=== PATIENT | male | born 1960 | race Caucasian/White ===

== ENCOUNTER 2018-05-25 12:43 | Day surgery (SDC) | payer BC ==
[2018-05-23 13:29] VITALS: BMI 30.2
[~2018-05-25 12:43] MED LIST: DEXAMETHASONE SOD PHOSPHATE 10 MG/ML 1 ML VIAL IV ONE; HYDROmorphone 0.5 MG/0.5 ML SYRINGE IVP PRN; LACTATED RINGERS 1,000 ML IV SCH; LIDOCAINE 1% 20 ML VIAL (10MG/ML) FOR IV START INTRADERMA PRN; ONDANSETRON 4 MG/2 ML VIAL IVP ONE; SCOPOLAMINE 1.5MG/72HR PATCH TRANSDERM ONE; ceFAZolin IN SWFI 2 GM/20 ML SYRINGE IVP ONE
[2018-05-25 13:16] LABS: Glucose,Whole Blood 118 mg/dL (75-99)
[2018-05-25] MEDS ORDERED: MIDAZOLAM 2 MG/2 ML VIAL ONE (14:23)
[2018-05-25] MEDS ORDERED: PROPOFOL 10 MG/ML 20 ML VIAL IV ONE (14:23)
[2018-05-25] MEDS ORDERED: ePHEDrine SULFATE/0.9% NACL/PF 50 MG/5 ML SYRINGE IV ONE (14:23)
[2018-05-25] MEDS ORDERED: fentaNYL (PF) 50 MCG/ML 2 ML AMP ONE (14:23)
[2018-05-25] MEDS ORDERED: LIDOCAINE 1% INJ 10MG/ML (20 ML MDV) SQ ONE (14:35)
[2018-05-25] MEDS ORDERED: LACTATED RINGERS 1,000 ML IV ONE (15:23)
--- NOTE | 2018-05-25 16:05 | P.OP ---
Date of Procedure: 05/25/18 Preoperative Diagnosis: Hallux limitus left foot Postoperative Diagnosis: Same Procedure(s) Performed: Webb bunionectomy left foot Anesthesia: GETA (Gen.) Surgeon: Kanu Clark Operative Findings: Arthritisdegenerative joint disease first MPJ left foot Description of Procedure: On the date of surgery the patient was taken to the operating room in good condition placed on the operating table supine position where IV was started and adequate IV anesthetic agents were utilized anesthesia was then further supplemented with approximately 10 mL of 0.25% plain Marcaine given in a Guerin block to the patient's left foot patient's left foot and ankle were then prepped and draped in the usual aseptic manner Over heavy web roll padding an ankle tourniquet was placed above the malleoli of the patient's left foot, the patient's left foot and ankle were then elevated and exsanguinated of blood utilizing an Esmarch bandage and after approximately 1 minutes ankle tourniquet was inflated to approximately 250 mmHg. At this point in time attention was directed to the dorsal aspect of the first metatarsal phalangeal joint where approximately 7 cm dorsolinear incision was made the patient responded to this painful stimuli and so the surgery was stopped and the patient was converted to a general anesthetic. Dissection was then carried deep down to level Periosteal Structures Overlying the First Metatarsal Phalangeal Joint These Were Incised in Line with the Original Skin Incision and Underscored and Retracted from the Underlying Bone The hyperostosis Present on the Dorsal Aspect of the First Metatarsal Phalangeal Joint Was Resected Flush Utilizing an osillating Bone Saw. The Proximal Phalanx Was Then Resected It a 90 Angle to the Shaft and Removed in Total from the Surgical Site. Throughout the Surgical Procedure Copious Amounts of Sterile Saline Solution Was Used To Irrigate Site Graft a Flap Had Been Fashioned Utilizing the Periosteum on the Medial Side of the Base of the Proximal Phalanx and This Was Sutured to the Lateral Side of the First Metatarsal Phalangeal Joint Interposing a Soft Tissue and the 2 Osseous Segments. The Periosteal Structures were Then Coaptated and Maintained Utilizing Combination of 2-0 3-0 Vicryl Simple Interrupted Suture Subcutaneous Tissue Layers Were Coaptated and Maintained Utilizing 4-0 Vicryl Simple Interrupted Suture and the Skin Was Closed Utilizing 4-0 Nylon Simple Interrupted Suture Spks Fluffs Four-Inch Conformer and 4 Inch Coban Was Used To Form a Compression Dressing and the Ankle Tourniquet to the Patient's Left Ankle Was Deflated Adequate Hemostatic Return Was Seen in All Digits the Patient's Left Foot Specifically the Left Hallux.
[2018-05-25 16:28] VITALS: TEMP 96.7
[2018-05-25 16:49] LABS: Glucose,Whole Blood 152 mg/dL (75-99)
[2018-05-25 18:08] VITALS: BP 144/82; PULSE 82; RESP 16
== END 2018-05-25 18:00 | disposition home or self-care (01) ==
LOC: OR 12:43
PROVIDERS: ATTEND Podiatrist Foot & Ankle Surgery
DX: M20.5X2 Other deformities of toe(s) (acquired), left foot (principal); M21.612 Bunion of left foot; K21.9 Gastro-esophageal reflux disease without esophagitis; E11.9 Type 2 diabetes mellitus without complications; Z79.84 Long term (current) use of oral hypoglycemic drugs; Z79.899 Other long term (current) drug therapy; Z79.1 Long term (current) use of non-steroidal anti-inflammatories (NSAID)
CPT/HCPCS: 88304; 88311; 28289; J2250; J1100; J2405; J2001; J3010; J2704; J0690

== ENCOUNTER 2019-01-04 06:50 | Day surgery (SDC) | payer BC ==
[2018-12-30 09:54] VITALS: BMI 31.4
[~2019-01-04 06:50] MED LIST changes: -DEXAMETHASONE SOD PHOSPHATE 10 MG/ML 1 ML VIAL IV ONE; -HYDROmorphone 0.5 MG/0.5 ML SYRINGE IVP PRN; -ONDANSETRON 4 MG/2 ML VIAL IVP ONE; -SCOPOLAMINE 1.5MG/72HR PATCH TRANSDERM ONE; -ceFAZolin IN SWFI 2 GM/20 ML SYRINGE IVP ONE
[2019-01-04 07:19] VITALS: TEMP 97.8
[2019-01-04 07:22] LABS: Glucose,Whole Blood 125 mg/dL (75-99)
--- NOTE | 2019-01-04 07:23 | P.GSHP ---
History of Present Illness H&P Date: 01/04/19 CHIEF COMPLAINT: GERD and colon screen HISTORY OF PRESENT ILLNESS: The patient is a 58-year-old male who presents with gastroesophageal reflux disease and need for colon screen. Upper and lower endoscopy were offered for further evaluation and management. PAST MEDICAL HISTORY: Please see list. PAST SURGICAL HISTORY: Please see list. MEDICATIONS: Please see list. ALLERGIES: Please see list. SOCIAL HISTORY: No illicit drug use FAMILY HISTORY: No reports of Crohn disease or ulcerative colitis. REVIEW OF ORGAN SYSTEMS: CONSTITUTIONAL: No reports of fevers or chills. GI: Denies any blood in stools or constipation. PHYSICAL EXAM: VITAL SIGNS: Stable GENERAL: Well-developed pleasant in no acute distress. HEENT: No scleral icterus. Extraocular movements grossly intact. Moist buccal mucosa. NECK: Supple without lymphadenopathy. CHEST: Unlabored respirations. Equal bilateral excursions. CARDIOVASCULAR: Regular rate and rhythm. Distal 2+ pulses. ABDOMEN: Soft, nondistended. MUSCULOSKELETAL: No clubbing, cyanosis, or edema. ASSESSMENT: 1. Gastroesophageal reflux disease 2. Colon screen. PLAN: 1. Recommend proceeding with an upper and lower endoscopy Past Medical History Past Medical History: Chest Pain / Angina, Diabetes Mellitus, GERD/Reflux, Hypertension Additional Past Medical History / Comment(s): back pain with sciatica, snores- problable sleep apnea from previous testing., blood in stool. History of Any Multi-Drug Resistant Organisms: None Reported Past Surgical History: Orthopedic Surgery Additional Past Surgical History / Comment(s): Fox bunionectomy Past Anesthesia/Blood Transfusion Reactions: No Reported Reaction Past Psychological History: Anxiety Smoking Status: Former smoker Past Alcohol Use History: None Reported Additional Past Alcohol Use History / Comment(s): Quit smoking 10 years ago., smoked 1- 1 1/2 ppd. Past Drug Use History: None Reported - Past Family History Mother Family Medical History: No Reported History Brother(s) Family Medical History: Cancer Medications and Allergies Home Medications Medication Instructions Recorded Confirmed Type Naproxen Sodium [Aleve] 220 mg PO BID PRN 05/23/18 12/30/18 History glipiZIDE XL [Glucotrol Xl] 5 mg PO QAM 05/23/18 01/04/19 History glipiZIDE [Glucotrol] 2.5 mg PO HS 05/23/18 01/04/19 History Calcium Carb/Magnesium Hydrox 1 each PO DIRECTED PRN 12/30/18 01/04/19 History [Rolaids Chewable Tablet] Ibuprofen [Motrin Ib] 1 dose PO DIRECTED PRN 12/30/18 12/30/18 History Metoprolol Succinate [Toprol XL] 25 mg PO DAILY 12/30/18 01/04/19 History traMADol HCL [Ultram] 25 mg PO BID PRN 12/30/18 01/04/19 History Allergies Allergy/AdvReac Type Severity Reaction Status Date / Time No Known Allergies Allergy Verified 01/04/19 07:03 Surgical - Exam Vital Signs Temp Pulse Resp BP Pulse Ox 97.8 F 51 L 16 146/71 95 01/04/19 07:14 01/04/19 07:14 01/04/19 07:14 01/04/19 07:14 01/04/19 07:14 Results - Labs Abnormal Lab Results - Last 24 Hours (Table) 01/04/19 Range/Units 07:17 POC Glucose (mg/dL) 125 H (75-99) mg/dL
[2019-01-04] MEDS ORDERED: LIDOCAINE 1% INJ 10MG/ML (20 ML MDV) ONE (07:27)
[2019-01-04] MEDS ORDERED: PROPOFOL 10 MG/ML 20 ML VIAL IV ONE (07:27)
--- NOTE | 2019-01-04 07:42 | P.PCN ---
Date of Procedure: 01/04/19 Description of Procedure: PREOPERATIVE DIAGNOSIS: Gastroesophageal reflux disease. POSTOPERATIVE DIAGNOSIS: Gastritis. Gastroesophageal reflux disease. Diaphragmatic hiatal hernia Duodenitis OPERATION: Esophagogastroduodenoscopy with biopsies along antrum. SURGEON: Caitlyn Membreno MD ANESTHESIA: MAC. INDICATIONS: The patient is a 58-year-old male who presents with a history of reflux disease. Benefits and risks of the procedure were described. Informed consent was obtained. DESCRIPTION: The patient was brought into the endoscopy suite and laid in the left lateral decubitus position. An Olympus gastroscope was passed along the posterior oropharynx down to the distal esophagus where the squamocolumnar junction was encountered at 40 cm from the incisors. The stomach was entered and no bile reflux was found. Additional findings are listed below. Biopsies with cold forceps were obtained of the antrum. The first through third portion of the duodenum was examined and remarkable for mild duodenitis. Retroflexion of the scope confirmed Hill grade 4 lower esophageal valve. The squamocolumnar junction demonstrated LA grade B erosive esophagitis. The stomach was desufflated. The patient tolerated the procedure well. FINDINGS: Squamocolumnar junction 40 cm from the incisors. Diaphragmatic hiatus at 42 cm. Hiatal hernia, 2 cm Hill grade 4 lower esophageal valve. LA grade B erosive esophagitis. Mild duodenitis. Chronic gastritis with recent bleed RECOMMENDATIONS: Upper endoscopy as needed.
--- NOTE | 2019-01-04 07:55 | P.PCN ---
Date of Procedure: 01/04/19 Description of Procedure: PREOPERATIVE DIAGNOSIS: Family history colon cancer, father Colonoscopy screening, high risk POSTOPERATIVE DIAGNOSIS: Family history colon cancer, father Colonoscopy screening, high risk OPERATION: Colonoscopy to the ileocecal valve and appendiceal orifice. SURGEON: Caitlyn Membreno MD. ANESTHESIA: MAC. INDICATIONS: The patient is a 58-year-old male who presents for colonoscopy screening. He presents for his first colonoscopy. Benefits and risks were described and info rmed consent was obtained. DESCRIPTION OF PROCEDURE: The patient had undergone Suprep. He had been brought into the operating room and laid in the left lateral decubitus position. After adequate intravenous sedation, the rectum was examined with 2% lidocaine jelly. No external hemorrhoids were encountered. The prostate was unremarkable. The rectal tone was within normal limits. No lesions were palpated in the rectal vault. An Olympus colonoscope was advanced until the ileocecal valve and appendiceal orifice were clearly viewed. The prep was excellent with clear visualization of the mucosal folds. The scope was removed with visualization of each mucosal fold. No scattered diverticulosis was encountered. No colonic polyps were found. No evidence of focal colitis was found. Retroflexion of the scope demonstrated grade no internal hemorrhoids. The colon was desufflated. The patient had tolerated the procedure well. Withdrawal time was over 6 minutes. FINDINGS: Aronchick preparation quality scale 2 (1-5) No internal hemorrhoids No external prolapsed hemorrhoids. No arteriovenous malformations. No adenomatous polyps. No focal colitis. RECOMMENDATIONS: Lower endoscopy in 5 years, 2023 Plan - Discharge Summary New Discharge Prescriptions: No Action glipiZIDE [Glucotrol] 2.5 mg PO HS glipiZIDE XL [Glucotrol Xl] 5 mg PO QAM Naproxen Sodium [Aleve] 220 mg PO BID PRN PRN Reason: Pain traMADol HCL [Ultram] 25 mg PO BID PRN PRN Reason: Pain Metoprolol Succinate [Toprol XL] 25 mg PO DAILY Ibuprofen [Motrin Ib] 1 dose PO DIRECTED PRN PRN Reason: Pain Calcium Carb/Magnesium Hydrox [Rolaids Chewable Tablet] 1 each PO DIRECTED PRN PRN Reason: Heartburn Discharge Medication List Naproxen Sodium [Aleve] 220 mg PO BID PRN 05/23/18 [History] glipiZIDE XL [Glucotrol Xl] 5 mg PO QAM 05/23/18 [History] glipiZIDE [Glucotrol] 2.5 mg PO HS 05/23/18 [History] Calcium Carb/Magnesium Hydrox [Rolaids Chewable Tablet] 1 each PO DIRECTED PRN 12/30/18 [History] Ibuprofen [Motrin Ib] 1 dose PO DIRECTED PRN 12/30/18 [History] Metoprolol Succinate [Toprol XL] 25 mg PO DAILY 12/30/18 [History] traMADol HCL [Ultram] 25 mg PO BID PRN 12/30/18 [History] Follow up Appointment(s)/Referral(s): Caitlyn Membreno MD [STAFF PHYSICIAN] - 01/17/19 Patient Instructions/Handouts: Colonoscopy (DC), *Surgery [facility] - (Anesthesia) Endoscopy Discharge Instructions, Hiatal Hernia (DC), Duodenitis (DC) Activity/Diet/Wound Care/Special Instructions: Repeat colonoscopy 5 years, 2023 Discharge Disposition: HOME SELF-CARE
[2019-01-04 08:14] VITALS: BP 143/76; PULSE 49; RESP 16
== END 2019-01-04 08:38 | disposition home or self-care (01) ==
LOC: ORWHC2ENDO 06:50
PROVIDERS: ATTEND Surgery Plastic and Reconstructive Surgery
DX: K21.0 Gastro-esophageal reflux disease with esophagitis (principal); Z12.11 Encounter for screening for malignant neoplasm of colon; E11.9 Type 2 diabetes mellitus without complications; I10 Essential (primary) hypertension; K29.50 Unspecified chronic gastritis without bleeding; K29.80 Duodenitis without bleeding; K44.9 Diaphragmatic hernia without obstruction or gangrene; Z79.84 Long term (current) use of oral hypoglycemic drugs; Z80.0 Family history of malignant neoplasm of digestive organs; Z87.891 Personal history of nicotine dependence; Z79.1 Long term (current) use of non-steroidal anti-inflammatories (NSAID); Z79.899 Other long term (current) drug therapy
CPT/HCPCS: 88305; 43239; J2001; J2704; G0105

== ENCOUNTER 2023-03-10 19:05 | Outpatient (CLI) | payer OTHER | END 2023-03-11 05:40 | disposition home or self-care (01) | LOC: 3 N SLEEP 19:05 | PROVIDERS: ATTEND Internal Medicine | DX: G47.33 Obstructive sleep apnea (adult) (pediatric) (principal); Z87.891 Personal history of nicotine dependence | CPT/HCPCS: 95810 ==

== ENCOUNTER 2024-08-23 08:54 | Day surgery (SDC) | payer OTHER ==
--- NOTE | 2024-08-23 09:01 | P.GSHP ---
History of Present Illness H&P Date: 08/23/24 CHIEF COMPLAINT: GERD and colon screen HISTORY OF PRESENT ILLNESS: The patient is a 64-year-old male who presents with gastroesophageal reflux disease and need for colon screen. Upper and lower endoscopy were offered for further evaluation and management. PAST MEDICAL HISTORY: Please see list. PAST SURGICAL HISTORY: Please see list. MEDICATIONS: Please see list. ALLERGIES: Please see list. SOCIAL HISTORY: No illicit drug use FAMILY HISTORY: No reports of Crohn disease or ulcerative colitis. REVIEW OF ORGAN SYSTEMS: CONSTITUTIONAL: No reports of fevers or chills. GI: Denies any blood in stools or constipation. PHYSICAL EXAM: VITAL SIGNS: Stable GENERAL: Well-developed pleasant in no acute distress. HEENT: No scleral icterus. Extraocular movements grossly intact. Moist buccal mucosa. NECK: Supple without lymphadenopathy. CHEST: Unlabored respirations. Equal bilateral excursions. CARDIOVASCULAR: Regular rate and rhythm. Distal 2+ pulses. ABDOMEN: Soft, nondistended. MUSCULOSKELETAL: No clubbing, cyanosis, or edema. ASSESSMENT: 1. Gastroesophageal reflux disease 2. Colon screen. PLAN: 1. Recommend proceeding with an upper and lower endoscopy Past Medical History Past Medical History: Diabetes Mellitus, GERD/Reflux, Hypertension, Prostate Disorder, Sleep Apnea/CPAP/BIPAP Additional Past Medical History / Comment(s): back pain with sciatica, doesn't use CPAP, recent issues w/dysphagia w/solids for 3 months History of Any Multi-Drug Resistant Organisms: None Reported Past Surgical History: Orthopedic Surgery Additional Past Surgical History / Comment(s): Fox bunionectomy, colonoscopies, nasal surg. & sinus surg. Past Anesthesia/Blood Transfusion Reactions: No Reported Reaction Smoking Status: Former smoker - Past Family History Mother Family Medical History: No Reported History Brother(s) Family Medical History: Cancer Medications and Allergies Home Medications Medication Instructions Recorded Confirmed Type Naproxen Sodium [Aleve] 220 mg PO BID PRN 05/23/18 08/22/24 History glipiZIDE XL [Glucotrol Xl] 2.5 mg PO QAM 05/23/18 08/22/24 History glipiZIDE [Glucotrol] 2.5 mg PO HS 05/23/18 08/22/24 History Calcium Carb/Magnesium Hydrox 1 each PO DIRECTED PRN 12/30/18 08/22/24 History [Rolaids Chewable Tablet] traMADol HCL [Ultram] 25 mg PO BID PRN 12/30/18 08/22/24 History Escitalopram [Lexapro] 20 mg PO DAILY 08/22/24 08/22/24 History Metoprolol Tartrate 25 mg PO DAILY 08/22/24 08/22/24 History Omeprazole [PriLOSEC] 20 mg PO AC-BID PRN 08/22/24 08/22/24 History diazePAM [Valium] 2 mg PO QAM 08/22/24 08/22/24 History Allergies Allergy/AdvReac Type Severity Reaction Status Date / Time No Known Allergies Allergy Verified 08/22/24 09:41
[2024-08-23 09:26] VITALS: TEMP 98.5
[2024-08-23] MEDS: IV FLUID CONTINUATION 1,000 ML IV ONE (09:37)
[2024-08-23] MEDS: LACTATED RINGERS 1,000 ML IV SCH (09:37)
[2024-08-23 09:40] LABS: Glucose,Whole Blood 136 mg/dL (70-110)
[2024-08-23] MEDS ORDERED: PROPOFOL 10 MG/ML 20 ML VIAL IV ONE (10:25)
[2024-08-23] MEDS ORDERED: LIDOCAINE 1% INJ 10MG/ML (20 ML MDV) ONE (10:25)
[2024-08-23] MEDS ORDERED: GLYCOPYRROLATE 0.2 MG/ML 2 ML VIAL ONE (10:25)
--- NOTE | 2024-08-23 10:54 | P.PCN ---
Date of Procedure: 08/23/24 Description of Procedure: PREOPERATIVE DIAGNOSIS: Dysphagia History of upper esophageal stricture POSTOPERATIVE DIAGNOSIS: Upper esophageal stenosis Diaphragmatic hiatal hernia, sliding-type Duodenitis Gastritis OPERATION: Esophagogastroduodenoscopy with rigid dilator over the guidewire 48 Fr and 60 Angolan with dilation Esophagogastroduodenoscopy with cold forceps biopsies stomach/antrum, esophagus, duodenum SURGEON: Caitlyn Membreno MD ANESTHESIA: MAC. INDICATIONS: The patient is a 64-year-old male who presents with with dysphagia. He had prior upper esophageal stricture with dilations. Benefits and risks of the procedure were described. Informed consent was obtained. DESCRIPTION: The patient was brought into the endoscopy suite and laid in the left lateral decubitus position. After a timeout was confirmed, the procedure was initiated. An Olympus gastroscope was passed into the posterior oropharynx where an upper esophageal stenosis was identified. The scope was passed down to the distal esophagus. To address the upper esophageal stenosis, rigid dilator over guidewire was selected. Next using an Pakistani rigid dilator, a guidewire was placed through the gastroscope. Next the scope was withdrawn. A 48 Angolan followed by 60-Angolan rigid Pakistani dilator was passed carefully along the posterior oropharynx to 50 cm and left in place for 2-3 minutes stretch. The dilator was withdrawn including the guidewire. The scope was reentered along the posterior oropharynx with no findings of full-thickness tear of the upper esophageal sphincter. Additional findings below. Within the stomach, cold forceps biopsies obtained. Biopsies obtained of duodenum including esophagus. The lower esophageal valve was evaluated with Hill grade 4 lower esophageal valve and presence of adjustable gastric band without erosion. LA grade B erosive esophagitis was identified. No full-thickness injury was encountered. The GI tract was desufflated. The patient tolerated the procedure well. FINDINGS: Upper esophageal stenosis dilated 48 Angolan and 60-Angolan rigid dilator Diaphragmatic hiatus at 40 cm from the incisors Squamocolumnar junction 43 cm from the incisors. Mild gastritis with cold forceps biopsies obtained Duodenitis with biopsies obtained LA grade B erosive esophagitis Hill grade 4 lower esophageal valve. Diaphragmatic hiatal hernia, 3 cm, sliding-type RECOMMENDATIONS: Upper endoscopy as needed
[2024-08-23 11:41] VITALS: BP 149/91; PULSE 61; RESP 16
--- NOTE | 2024-08-23 11:53 | P.PCN ---
Date of Procedure: 08/23/24 Description of Procedure: PREOPERATIVE DIAGNOSIS: Family history of colon cancer POSTOPERATIVE DIAGNOSIS: Colonoscopy screening. Constipation OPERATION: Colonoscopy to the cecum, ileocecal valve and appendiceal orifice. SURGEON: Caitlyn Membreno MD. ANESTHESIA: MAC. INDICATIONS: The patient is a 64-year-old male who presents for colonoscopy screening. Last colonoscopy 5 years ago. Benefits and risks were described and informed consent was obtained. DESCRIPTION OF PROCEDURE: The patient had undergone GoLytely prep. The patient had been brought into the operating room and laid in the left lateral decubitus position. After adequate intravenous sedation, the rectum was examined with 2% lidocaine jelly. No external hemorrhoids were encountered. The rectal tone was within normal limits. No lesions were palpated in the rectal vault. An Olympus colonoscope was advanced until the cecum, ileocecal valve and appendiceal orifice were clearly viewed. The prep was poor to fair. Scattered diverticulosis was encountered. No colonic polyps were found. No evidence of focal colitis was found. Ret roflexion of the scope demonstrated grade 1 internal hemorrhoids without active bleeding or inflammation. The colon was desufflated. The patient had tolerated the procedure well. Withdrawal time was over 6 minutes. FINDINGS: Aronchick preparation quality scale 3 (1-5) Internal hemorrhoids, grade 2 External prolapsed hemorrhoids, grade 2 No arteriovenous malformations. No adenomatous polyps. No focal colitis. Residual constipation limiting view of polyps greater than 1 cm in size RECOMMENDATIONS: Lower endoscopy in 5 years, 2030 Recommend 2-day colon prep Plan - Discharge Summary Discharge Rx Participant: No New Discharge Prescriptions: New Omeprazole [PriLOSEC] 40 mg PO DAILY #14 cap Continue glipiZIDE [Glucotrol] 2.5 mg PO HS glipiZIDE XL [Glucotrol XL] 2.5 mg PO QAM Naproxen Sodium [Aleve] 220 mg PO BID PRN PRN Reason: Pain traMADol HCL [Ultram] 25 mg PO BID PRN PRN Reason: Pain Calcium Carb/Magnesium Hydrox [Rolaids Chewable Tablet] 1 each PO DIRECTED PRN PRN Reason: Heartburn Escitalopram [Lexapro] 20 mg PO DAILY Metoprolol Tartrate 25 mg PO DAILY diazePAM [Valium] 2 mg PO QAM Discontinued Omeprazole [PriLOSEC] 20 mg PO AC-BID PRN PRN Reason: Heartburn Discharge Medication List Naproxen Sodium [Aleve] 220 mg PO BID PRN 05/23/18 [History] glipiZIDE XL [Glucotrol XL] 2.5 mg PO QAM 05/23/18 [History] glipiZIDE [Glucotrol] 2.5 mg PO HS 05/23/18 [History] Calcium Carb/Magnesium Hydrox [Rolaids Chewable Tablet] 1 each PO DIRECTED PRN 12/30/18 [History] traMADol HCL [Ultram] 25 mg PO BID PRN 12/30/18 [History] Escitalopram [Lexapro] 20 mg PO DAILY 08/22/24 [History] Metoprolol Tartrate 25 mg PO DAILY 08/22/24 [History] diazePAM [Valium] 2 mg PO QAM 08/22/24 [History] Omeprazole [PriLOSEC] 40 mg PO DAILY #14 cap 08/23/24 [Rx] Follow up Appointment(s)/Referral(s): Caitlyn Membreno MD [STAFF PHYSICIAN] - 09/12/24 2:00 pm Patient Instructions/Handouts: *Surgery [facility] - (Anesthesia) Discharge Instructions Outpatient Surgery, Esophageal Dilation (DC) Activity/Diet/Wound Care/Special Instructions: Salt water gargle twice daily for for 3 days. Repeat colonoscopy 5 years, 2029 Discharge Disposition: HOME SELF-CARE
== END 2024-08-23 12:06 | disposition home or self-care (01) ==
LOC: ORWHC2ENDO 08:54
PROVIDERS: ATTEND Surgery Plastic and Reconstructive Surgery
DX: Z12.11 Encounter for screening for malignant neoplasm of colon (principal); K22.2 Esophageal obstruction; D12.8 Benign neoplasm of rectum; K44.9 Diaphragmatic hernia without obstruction or gangrene; K29.80 Duodenitis without bleeding; K57.30 Diverticulosis of large intestine without perforation or abscess without bleeding; K64.1 Second degree hemorrhoids; K64.8 Other hemorrhoids; E11.9 Type 2 diabetes mellitus without complications; I10 Essential (primary) hypertension; G47.30 Sleep apnea, unspecified; K21.9 Gastro-esophageal reflux disease without esophagitis; Z87.891 Personal history of nicotine dependence; Z79.84 Long term (current) use of oral hypoglycemic drugs
CPT/HCPCS: 45378; 43239; 43249; J2003; J2704; J1596; 88305